=== PATIENT | male | born 1995 | race Caucasian/White ===

== ENCOUNTER 2018-03-24 03:03 | Emergency (ER) | payer BC ==
[2018-03-24] MEDS ORDERED: Sodium Chloride 0.9% 1000 ML 1,000 ML ONE ×2 (03:16→03:52)
[2018-03-24] MEDS ORDERED: Zofran 4 MG/2 ML VIAL ONE (03:16)
[2018-03-24] MEDS ORDERED: Zofran 4 MG/2 ML VIAL IV ONE (03:20)
--- NOTE | 2018-03-24 03:20 | ERPHSYRPT ---
- History of Present Illness Time Seen by Provider: 03/24/18 03:16 Source: family Exam Limitations: no limitations Physician History: The patient is a 22-year-old male brought in by family complaining that he drank somebody's homemade wine and is intoxicated. He's having a little bit of trouble breathing but not currently. Timing/Duration: today Severity: moderate Modifying Factors: Improves With: nothing Associated Symptoms: other (intoxication) Allergies/Adverse Reactions: No Known Drug Allergies Allergy (Verified 03/24/18 03:32) Home Medications: No Reportable Medications [No Reported Medications] 03/24/18 [History] Hx Tetanus, Diphtheria Vaccination/Date Given: Yes Hx Influenza Vaccination/Date Given: No Hx Pneumococcal Vaccination/Date Given: Yes - Review of Systems Constitutional: No Fever, No Chills Eyes: No Symptoms Ears, Nose, & Throat: No Symptoms Respiratory: No Cough, No Dyspnea Cardiac: No Chest Pain, No Edema, No Syncope Abdominal/Gastrointestinal: No Abdominal Pain, No Nausea, No Vomiting, No Diarrhea Genitourinary Symptoms: No Dysuria Musculoskeletal: No Back Pain, No Neck Pain Skin: No Rash Neurological: Other (intoxicated) Psychological: No Symptoms Endocrine: No Symptoms Hematologic/Lymphatic: No Symptoms Immunological/Allergic: No Symptoms All Other Systems: Reviewed and Negative - Past Medical History Pertinent Past Medical History: No - Past Surgical History Past Surgical History: Yes Other Surgical History: tubes in ears - Social History Smoking Status: Never smoker Exposure to second hand smoke: Yes Alcohol Use: None Drug Use: none Patient Lives Alone: No Significant Family History: no pertinent family hx - Nursing Vital Signs Nursing Vital Signs: Initial Vital Signs Temperature 98.1 F 03/24/18 03:20 Pulse Rate 93 H 03/24/18 03:20 Respiratory Rate 16 03/24/18 03:20 Blood Pressure 107/75 03/24/18 03:20 O2 Sat by Pulse Oximetry 97 03/24/18 03:20 Pain Scale Pain Intensity 0 - Physical Exam General Appearance: other (intoxicated) Eye Exam: PERRL/EOMI, eyes nml inspection Ears, Nose, Throat Exam: normal ENT inspection, TMs normal, pharynx normal, moist mucous membranes Neck Exam: normal inspection, non-tender, supple, full range of motion Respiratory Exam: normal breath sounds, lungs clear, No respiratory distress Cardiovascular Exam: regular rate/rhythm, normal heart sounds, normal peripheral pulses Gastrointestinal/Abdomen Exam: soft, normal bowel sounds, No tenderness, No mass Rectal Exam: not done Back Exam: normal inspection, normal range of motion, No CVA tenderness, No vertebral tenderness Extremity Exam: normal inspection, normal range of motion, pelvis stable Neurologic Exam: alert, oriented x 3, cooperative, sensation nml, intoxicated appearance, No motor deficits Skin Exam: normal color, warm, dry, No rash Lymphatic Exam: No adenopathy SpO2 Interpretation: normal Ordered Tests: Active Orders 24 hr Category Date Time Status Cath for Specimen-Straight STAT Care 03/24/18 03:21 Active BMP Stat Lab 03/24/18 03:13 Completed CBC W DIFF Stat Lab 03/24/18 03:13 Completed ETHYL ALCOHOL Stat Lab 03/24/18 03:13 Completed UA W/RFX UR CULTURE Stat Lab 03/24/18 04:14 Completed Urine Triage Profile Stat Lab 03/24/18 04:14 Received Medication Summary Generic Name Dose Route Start Last Admin Trade Name Freq PRN Reason Stop Dose Admin Sodium Chloride 2,000 mls @ 999 mls/hr 03/24/18 03:20 03/24/18 04:26 Sodium Chloride 0.9% 1000 Ml IV 03/24/18 05:20 999 mls/hr .Q2H1M STA Administration Discontinued Medications Generic Name Dose Route Start Last Admin Trade Name Freq PRN Reason Stop Dose Admin Sodium Chloride Confirm 03/24/18 03:16 Sodium Chloride 0.9% 1000 Ml Administered 03/24/18 03:17 Dose 1,000 mls @ ud .ROUTE .STK-MED ONE Sodium Chloride Confirm 03/24/18 03:52 Sodium Chloride 0.9% 1000 Ml Administered 03/24/18 03:53 Dose 1,000 mls @ ud .ROUTE .STK-MED ONE Ondansetron HCl Confirm 03/24/18 03:16 Zofran 4 Mg/2 Ml Vial Administered 03/24/18 03:17 Dose 4 mg .ROUTE .STK-MED ONE Ondansetron HCl 4 mg 03/24/18 03:20 03/24/18 03:40 Zofran 4 Mg/2 Ml Vial IV 03/24/18 03:21 4 mg STAT ONE Administration Lab/Rad Data: Laboratory Result Diagrams 03/24/18 03:13 03/24/18 03:13 Laboratory Results 03/24/18 03/24/18 03/24/18 Range/Units 04:14 03:13 03:13 WBC 9.1 (4.0-10.5) K/mm3 RBC 4.46 (4.1-5.6) M/mm3 Hgb 14.5 (12.5-18.0) gm/dl Hct 41.1 L (42-50) % MCV 92.2 (78-100) fl MCH 32.5 H (26-32) pg MCHC 35.3 (32-36) g/dl RDW 11.8 (11.5-14.0) % Plt Count 179 (150-450) K/mm3 MPV 11.3 H (6-9.5) fl Gran % 64.7 (36.0-66.0) % Eos # (Auto) 0.06 (0-0.5) Absolute Lymphs (auto) 2.38 (1.0-4.6) Absolute Monos (auto) 0.74 (0.0-1.3) Lymphocytes % 26.2 (24.0-44.0) % Monocytes % 8.1 (0.0-12.0) % Eosinophils % 0.7 (0.00-5.0) % Basophils % 0.3 (0.0-0.4) % Absolute Granulocytes 5.89 (1.4-6.9) Basophils # 0.03 (0-0.4) Sodium 144 (137-145) mmol/L Potassium 3.7 (3.5-5.1) mmol/L Chloride 106 (98-107) mmol/L Carbon Dioxide 21 L (22-30) mmol/L Anion Gap 20.4 H (5-15) MEQ/L BUN 10 (9-20) mg/dL Creatinine 0.86 (0.66-1.25) mg/dL Estimated GFR > 60.0 ML/MIN Glucose 156 H (74-106) mg/dL Calcium 9.0 (8.4-10.2) mg/dL Ur Collection Type CLEAN CATCH Urine Color YELLOW (YELLOW) Urine Appearance CLEAR (CLEAR) Urine pH 5.0 (5-6) Ur Specific [place] 1.020 (1.005-1.025) Urine Protein NEGATIVE (Negative) Urine Ketones NEGATIVE (NEGATIVE) Urine Blood NEGATIVE (0-5) Waqar/ul Urine Nitrite NEGATIVE (NEGATIVE) Urine Bilirubin NEGATIVE (NEGATIVE) Urine Urobilinogen NORMAL (0-1) mg/dL Ur Leukocyte Esterase NEGATIVE (NEGATIVE) Urine Culture Reflexed NO (NO) Urine Glucose NEGATIVE (NEGATIVE) mg/dL Ethyl Alcohol 207 H (0-10) mg/dL - Progress Progress: improved Counseled pt/family regarding: lab results, diagnosis - Departure Time of Disposition: 04:27 Departure Disposition: Home Clinical Impression: Alcohol intoxication Condition: Stable Critical Care Time: No Referrals: Provider,Unknown [NON-STAFF PHY W/O PRIVILEGES] - Additional Instructions: You had acute alcohol intoxication. You were given Zofran 4 mg and fluids by IV in the ER. Stay well hydrated. Follow-up as needed.
[2018-03-24 03:34] LABS: BASOPHIL % 0.3 % (0.0-0.4); Basophil (Absolute #) 0.03 (0-0.4); Eosinophil % 0.7 % (0.00-5.0); Eosinophil (Absolute #) 0.06 (0-0.5); Granulocyte Absolute (ANC) 5.89 (1.4-6.9); Granulocytes % 64.7 % (36.0-66.0); Hematocrit 41.1 % (42-50); Hemoglobin 14.5 gm/dl (12.5-18.0); Lymphocyte (Absolute #) 2.38 (1.0-4.6); Lymphocytes % 26.2 % (24.0-44.0); Mean Cell Volume 92.2 fl (78-100); Mean Corpuscular Hemoglobin 32.5 pg (26-32); Mean Corpuscular Hgb Concent. 35.3 g/dl (32-36); Mean Platelet Volume 11.3 fl (6-9.5); Monocyte (Absolute #) 0.74 (0.0-1.3); Monocytes % 8.1 % (0.0-12.0); Platelet Count 179 K/mm3 (150-450); Red Blood Count 4.46 M/mm3 (4.1-5.6); Red Cell Distribution Width 11.8 % (11.5-14.0); White Blood Count 9.1 K/mm3 (4.0-10.5)
[2018-03-24] MEDS: Sodium Chloride 0.9% 1000 ML 2,000 ML IV STA ×2 (03:40→04:26)
[2018-03-24 03:51] LABS: ANION GAP 20.4 MEQ/L (5-15); BLOOD UREA NITROGEN 10 mg/dL (9-20); CHLORIDE 106 mmol/L (98-107); Carbon Dioxide 21 mmol/L (22-30); Creatinine 1 0.86 mg/dL (0.66-1.25); ETHYL ALCOHOL 207 mg/dL (0-10); Glucose 156 mg/dL (74-106); Potassium 3.7 mmol/L (3.5-5.1); SODIUM 144 mmol/L (137-145)
[2018-03-24 04:24] LABS: Appearance CLEAR (CLEAR); Bilirubin NEGATIVE (NEGATIVE); Blood NEGATIVE Ery/ul (0-5); Glucose NEGATIVE (NEGATIVE); Ketones NEGATIVE (NEGATIVE); Leukocyte Esterase NEGATIVE (NEGATIVE); Nitrite NEGATIVE (NEGATIVE); Protein,Urine Dip NEGATIVE (Negative); Urobilinogen NORMAL mg/dL (0-1)
[2018-03-24 04:38] LABS: Amphetamine,Urine NEGATIVE (NEGATIVE); Barbiturate,Urine NEGATIVE (NEGATIVE); Benzodiazepine,Urine NEGATIVE (NEGATIVE); Cocaine,Urine NEGATIVE (NEGATIVE); Methadone,Urine NEGATIVE (NEGATIVE); Opiate,Urine NEGATIVE (NEGATIVE); PCP,Urine NEGATIVE (NEGATIVE); THC,Urine POSITIVE (NEGATIVE)
[2018-03-24 05:06] VITALS: BP 112/75; PULSE 89; O2SAT 99
== END 2018-03-24 05:06 | disposition home or self-care (01) ==
LOC: ED 03:03
DX: F10.129 Alcohol abuse with intoxication, unspecified (principal)
CPT/HCPCS: 36415; 80048; 80307; 81002; 85025; 96360; 96361; 96374; 99284; J2405; G0480

== ENCOUNTER 2018-12-05 17:35 | Emergency (ER) | payer BC ==
--- NOTE | 2018-12-05 17:51 | ERPHSYRPT ---
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 Occurred: just prior to arrival Method of Injury: other (back flip), fell Quality: aching, throbbing Severity of Pain-Max: moderate Severity of Pain-Current: moderate Extremities Pain Location: wrist: left Modifying Factors: Improves With: movement Associated Symptoms: none Allergies/Adverse Reactions: No Known Drug Allergies Allergy (Verified 12/05/18 18:06) Hx Tetanus, Diphtheria Vaccination/Date Given: Yes Hx Influenza Vaccination/Date Given: No Hx Pneumococcal Vaccination/Date Given: Yes - Review of Systems Constitutional: No Symptoms Eyes: No Symptoms Ears, Nose, & Throat: No Symptoms Respiratory: No Symptoms Cardiac: No Symptoms Abdominal/Gastrointestinal: No Symptoms Genitourinary Symptoms: No Symptoms Musculoskeletal: Fall, Injury, Joint Pain (left wrist), Joint Swelling Skin: No Symptoms Neurological: No Symptoms Psychological: No Symptoms Endocrine: No Symptoms Hematologic/Lymphatic: No Symptoms Immunological/Allergic: No Symptoms All Other Systems: Reviewed and Negative - Past Medical History Pertinent Past Medical History: No Neurological History: No Pertinent History ENT History: No Pertinent History Cardiac History: No Pertinent History Respiratory History: No Pertinent History Endocrine Medical History: No Pertinent History Musculoskeletal History: No Pertinent History GI Medical History: No Pertinent History History: No Pertinent History Psycho-Social History: No Pertinent History Male Reproductive Disorders: No Pertinent History - Past Surgical History Past Surgical History: Yes Other Surgical History: tubes in ears - Social History Smoking Status: Never smoker How long have you smoked: 3yrs Exposure to second hand smoke: Yes Alcohol Use: None Drug Use: none Patient Lives Alone: No Significant Family History: no pertinent family hx - Nursing Vital Signs Nursing Vital Signs: Initial Vital Signs Temperature 98.4 F 12/05/18 17:51 Pulse Rate 64 12/05/18 17:51 Respiratory Rate 20 12/05/18 17:51 Blood Pressure 111/62 12/05/18 17:51 O2 Sat by Pulse Oximetry 97 12/05/18 17:51 Pain Scale Pain Intensity 9 - Physical Exam General Appearance: no apparent distress, alert, anxiety Eyes, Ears, Nose, Throat Exam: normal ENT inspection, moist mucous membranes Neck Exam: normal inspection, non-tender, supple, full range of motion Cardiovascular/Respiratory Exam: chest non-tender Abdominal Exam: non-tender Back Exam: normal inspection, normal range of motion, No CVA tenderness, No vertebral tenderness Shoulder Exam: normal inspection, non-tender, no evidence of injury, normal ROM Elbow/Forearm Exam: normal inspection, non-tender, no evidence of injury, normal ROM Wrist Exam: normal ROM, bone tenderness, soft tissue tenderness, swelling Hand Exam: normal inspection, non-tender, no evidence of injury, normal ROM Neuro/Tendon Exam: normal sensation, normal motor functions, normal tendon functions, responds to pain, no evidence tendon injury Mental Status Exam: alert, oriented x 3, cooperative Skin Exam: normal color, warm, dry SpO2 Interpretation: normal O2 Delivery: Room Air - Course Nursing assessment & vital signs reviewed: Yes Ordered Tests: Active Orders 24 hr Category Date Time Status Splint STAT Care 12/05/18 19:22 Ordered FOREARM Stat Exams 12/05/18 18:32 Taken WRIST (MIN 3 VIEWS) Stat Exams 12/05/18 18:32 Taken Medication Summary Discontinued Medications Generic Name Dose Route Start Last Admin Trade Name Freq PRN Reason Stop Dose Admin Oxycodone/Acetaminophen 1 tab 12/05/18 18:33 12/05/18 19:01 Percocet Tablet 5/325mg PO 12/05/18 18:34 1 tab STAT STA Administration Oxycodone/Acetaminophen Confirm 12/05/18 18:55 Percocet Tablet 5/325mg Administered 12/05/18 18:56 Dose 1 tab .ROUTE .STK-MED ONE - Progress Progress: improved, pain not gone completely, re-examined Progress Note: 12/05/18 19:28 post slint nv check-intact xray left wrist and forearm-nondisplaced distal radius Counseled pt/family regarding: diagnosis, need for follow-up - Departure Departure Disposition: Home Clinical Impression: Distal radius fracture Condition: Stable Critical Care Time: No Referrals: MARIELLA ELIZONDO NP [Primary Care Provider] - Additional Instructions: ice pack to area 3 times daily for 2 days. add ibuprofen for pain. follow up tomorrow with orthopedic of choice for further management Prescriptions: Oxycodone HCl/Acetaminophen [Percocet 5-325 mg Tablet] 1 each PO Q6H PRN PRN # 12 tablet MDD 4 PRN Reason: Pain
[2018-12-05] MEDS ORDERED: PERCOCET TABLET 5/325MG PO STA ×2 (18:33→20:13)
[2018-12-05] MEDS ORDERED: PERCOCET TABLET 5/325MG ONE ×2 (18:55→20:16)
[2018-12-05 20:03] VITALS: BP 152/65; PULSE 72; O2SAT 96
--- NOTE | 2018-12-06 08:41 | XRAY ---
Indication: Pain following fall. Comparison: None 3 views of the left wrist limited due to overlying external bracelet. Query nondisplaced distal radial fracture, ulnar aspect with intra-articular extension. Follow-up exam or thin section CT imaging may yield further information. Remaining wrist unremarkable.
--- NOTE | 2018-12-06 08:43 | XRAY ---
Indication: Pain following fall. Comparison: None 2 views of the left forearm obtained. Wrist reported separately. No bony, articular, or soft tissue abnormalities.
== END 2018-12-05 18:21 | disposition home or self-care (01) ==
LOC: ED 17:35
DX: S52.502A Unspecified fracture of the lower end of left radius, initial encounter for closed fracture (principal); M25.532 Pain in left wrist; W01.198A Fall on same level from slipping, tripping and stumbling with subsequent striking against other object, initial encounter; Y93.79 Activity, other specified sports and athletics
CPT/HCPCS: 29126; 73090; 73110; 99284; A9270-GY

== ENCOUNTER 2019-05-30 17:42 | Emergency (ER) | payer BC ==
--- NOTE | 2019-05-30 17:50 | ERPHSYRPT ---
- History of Present Illness Source: patient, family Exam Limitations: no limitations Timing/Duration: today Activities at Onset: none Severity of Dyspnea-Max: mild Severity of Dyspnea-Current: mild Possible Cause: no prior episodes Associated Symptoms: intermittent, anxiety, chest pain/discomfort, painful breathing Hx Tetanus, Diphtheria Vaccination/Date Given: Yes Hx Influenza Vaccination/Date Given: No Hx Pneumococcal Vaccination/Date Given: Yes <JOE ABAD - Last Filed: 05/30/19 19:08> <PALLAVI HUBER - Last Filed: 05/30/19 19:41> - History of Present Illness Time Seen by Provider: 05/30/19 17:50 Physician History: 23 y/o white male presents with sudden onset cp and soa. pt quit smoking cigarettes a year ago. he replaced this with vaping of thc bases jewel product. pt denies fever. he denies cough. he has left side localized to costal margin. it is sharp and worse with deep inspiration. pt is not on any medications and denies illicit drug use (JOE ABAD) Allergies/Adverse Reactions: No Known Drug Allergies Allergy (Verified 05/30/19 18:01) Home Medications: No Reportable Medications [No Reported Medications] 05/30/19 [History] - Review of Systems Constitutional: No Symptoms Eyes: No Symptoms Ears, Nose, & Throat: No Symptoms Respiratory: Dyspnea, No Stridor, No Wheezing Cardiac: Chest Pain, No Palpitations, No Syncope Abdominal/Gastrointestinal: No Symptoms, No Abdominal Pain, No Nausea, No Vomiting, No Diarrhea Genitourinary Symptoms: No Symptoms Musculoskeletal: No Symptoms Skin: No Symptoms Neurological: No Symptoms Psychological: No Symptoms Endocrine: No Symptoms Hematologic/Lymphatic: No Symptoms Immunological/Allergic: No Symptoms All Other Systems: Reviewed and Negative <JOE ABAD - Last Filed: 05/30/19 19:08> - Past Medical History Pertinent Past Medical History: No Neurological History: No Pertinent History ENT History: No Pertinent History Cardiac History: No Pertinent History Respiratory History: No Pertinent History Endocrine Medical History: No Pertinent History Musculoskeletal History: No Pertinent History GI Medical History: No Pertinent History History: No Pertinent History Psycho-Social History: No Pertinent History Male Reproductive Disorders: No Pertinent History - Past Surgical History Past Surgical History: Yes Neuro Surgical History: No Pertinent History Cardiac: No Pertinent History Respiratory: No Pertinent History Gastrointestinal: No Pertinent History Genitourinary: No Pertinent History Musculoskeletal: No Pertinent History Male Surgical History: No Pertinent History Other Surgical History: tubes in ears - Social History Smoking Status: Never smoker How long have you smoked: 3yrs Exposure to second hand smoke: Yes Alcohol Use: None Drug Use: none Patient Lives Alone: No Significant Family History: no pertinent family hx <JOE ABAD - Last Filed: 05/30/19 19:08> - Physical Exam General Appearance: mild distress, alert, anxiety Eye Exam: PERRL/EOMI, eyes nml inspection Ears, Nose, Throat Exam: hearing grossly normal, normal ENT inspection, normal pharynx Neck Exam: normal inspection, non-tender, supple, full range of motion Respiratory Exam: normal breath sounds, lungs clear, airway intact, No chest tenderness, No respiratory distress Cardiovascular/Chest Exam: normal heart sounds, regular rate/rhythm, murmur Abdominal/Gastrointestinal Exam: soft, normal bowel sounds, No tenderness Rectal Exam: not done Extremity Exam: non-tender, normal range of motion, normal inspection Neurologic Exam: alert, oriented x 3, cooperative, cafe helper II-XII nml as tested Skin Exam: normal color, warm, dry Lymphatic Exam: No adenopathy SpO2 Interpretation: normal O2 Delivery: Room Air <JOE ABAD - Last Filed: 05/30/19 19:08> - Nursing Vital Signs Nursing Vital Signs: Initial Vital Signs Temperature 96.9 F 05/30/19 17:43 Pulse Rate 63 05/30/19 17:43 Respiratory Rate 26 H 05/30/19 17:43 Blood Pressure 114/69 05/30/19 17:43 O2 Sat by Pulse Oximetry 99 05/30/19 17:43 Pain Scale Pain Intensity 5 - Course Nursing assessment & vital signs reviewed: Yes EKG Interpreted by Me: RATE (53), Sinus Rhythm, NORMAL AXIS, NORMAL INTERVALS, NORMAL QRS, Other (no comparison ekg.) <JOE ABAD - Last Filed: 05/30/19 19:08> Ordered Tests: Active Orders 24 hr Category Date Time Status Merchandise Executive STAT Care 05/30/19 18:24 Active Clean Catch Urine Specimen STAT Care 05/30/19 18:28 Active EKG-ER Only STAT Care 05/30/19 18:23 Active IV Insertion STAT Care 05/30/19 18:23 Active Pulse Oximetry (ED) STAT Care 05/30/19 18:23 Active CHEST 1 VIEW (PORTABLE) Stat Exams 05/30/19 18:23 Taken CBC W DIFF Stat Lab 05/30/19 18:30 Completed CMP Stat Lab 05/30/19 18:30 Completed D-DIMER QUANTITATION Stat Lab 05/30/19 18:30 Completed Lactic Acid Stat Lab 05/30/19 18:40 Completed NT PRO BNP Stat Lab 05/30/19 18:30 Completed TROPONIN Q3H Lab 05/30/19 18:30 Completed TROPONIN Q3H Lab 05/30/19 21:30 Ordered TROPONIN Q3H Lab 05/31/19 00:30 Ordered TROPONIN Q3H Lab 05/31/19 03:30 Ordered TROPONIN Q3H Lab 05/31/19 06:30 Ordered Urine Triage Profile Stat Lab 05/30/19 19:23 Ordered Lab/Rad Data: Laboratory Result Diagrams 05/30/19 18:30 05/30/19 18:30 Laboratory Results 05/30/19 05/30/19 05/30/19 Range/Units 18:40 18:30 18:30 WBC (4.0-10.5) K/mm3 RBC (4.1-5.6) M/mm3 Hgb (12.5-18.0) gm/dl Hct (42-50) % MCV (78-100) fl MCH (26-32) pg MCHC (32-36) g/dl RDW (11.5-14.0) % Plt Count (150-450) K/mm3 MPV (6-9.5) fl Gran % (36.0-66.0) % Eos # (Auto) (0-0.5) Absolute Lymphs (auto) (1.0-4.6) Absolute Monos (auto) (0.0-1.3) Lymphocytes % (24.0-44.0) % Monocytes % (0.0-12.0) % Eosinophils % (0.00-5.0) % Basophils % (0.0-0.4) % Absolute Granulocytes (1.4-6.9) Basophils # (0-0.4) D-Dimer < 170 L (215-500) ng/mL Sodium (137-145) mmol/L Potassium (3.5-5.1) mmol/L Chloride (98-107) mmol/L Carbon Dioxide (22-30) mmol/L Anion Gap (5-15) MEQ/L BUN (9-20) mg/dL Creatinine (0.66-1.25) mg/dL Estimated GFR ML/MIN Glucose (74-106) mg/dL Lactic Acid 1.0 (0.4-2.0) Calcium (8.4-10.2) mg/dL Total Bilirubin (0.2-1.3) mg/dL AST (17-59) U/L ALT (0-50) U/L Alkaline Phosphatase (38-126) U/L Troponin I < 0.012 (0.000-0.034) ng/mL NT-Pro-B Natriuret Pep (0-450) pg/mL Serum Total Protein (6.3-8.2) g/dL Albumin (3.5-5.0) g/dL 05/30/19 05/30/19 Range/Units 18:30 18:30 WBC 6.2 (4.0-10.5) K/mm3 RBC 4.42 (4.1-5.6) M/mm3 Hgb 13.9 (12.5-18.0) gm/dl Hct 40.4 L (42-50) % MCV 91.4 (78-100) fl MCH 31.4 (26-32) pg MCHC 34.4 (32-36) g/dl RDW 12.2 (11.5-14.0) % Plt Count 194 (150-450) K/mm3 MPV 11.2 H (6-9.5) fl Gran % 64.1 (36.0-66.0) % Eos # (Auto) 0.12 (0-0.5) Absolute Lymphs (auto) 1.54 (1.0-4.6) Absolute Monos (auto) 0.57 (0.0-1.3) Lymphocytes % 24.7 (24.0-44.0) % Monocytes % 9.1 (0.0-12.0) % Eosinophils % 1.9 (0.00-5.0) % Basophils % 0.2 (0.0-0.4) % Absolute Granulocytes 4.00 (1.4-6.9) Basophils # 0.01 (0-0.4) D-Dimer (215-500) ng/mL Sodium 144 (137-145) mmol/L Potassium 3.7 (3.5-5.1) mmol/L Chloride 104 (98-107) mmol/L Carbon Dioxide 29 (22-30) mmol/L Anion Gap 15.1 H (5-15) MEQ/L BUN 14 (9-20) mg/dL Creatinine 0.83 (0.66-1.25) mg/dL Estimated GFR > 60.0 ML/MIN Glucose 81 (74-106) mg/dL Lactic Acid (0.4-2.0) Calcium 9.6 (8.4-10.2) mg/dL Total Bilirubin 0.60 (0.2-1.3) mg/dL AST 29 (17-59) U/L ALT 17 (0-50) U/L Alkaline Phosphatase 62 (38-126) U/L Troponin I (0.000-0.034) ng/mL NT-Pro-B Natriuret Pep 97.7 (0-450) pg/mL Serum Total Protein 8.4 H (6.3-8.2) g/dL Albumin 4.9 (3.5-5.0) g/dL - Progress Air Movement: good <JOE ABAD - Last Filed: 05/30/19 19:08> <PALLAVI HUBER - Last Filed: 05/30/19 19:41> - Progress Progress Note: 05/30/19 18:47 cxr-no acute process 05/30/19 19:08 transfer of care to dr. huber. i reviewed pt hx and pending tests. he accepts pt. (JOE ABAD) 05/30/19 19:30 the patient is nontoxic with normal vital signs and isolated left-sided chest pain and is a healthy 23-year-old male. Likely this is costochondritis. No evidence of pneumothorax or focal infiltrate on imaging. Labs normal. Low suspicion for pulmonary embolism or infectious etiology. Scheduled instead therapy and follow up with primary care recommended at time of discharge. 05/30/19 19:32 in the (PALLAVI HUBER) <JOE ABAD - Last Filed: 05/30/19 19:08> - Departure Departure Disposition: Home Critical Care Time: No <PALLAVI HUBER - Last Filed: 05/30/19 19:41> - Departure Clinical Impression: Chest pain Qualifiers: Chest pain type: unspecified Qualified Code(s): R07.9 - Chest pain, unspecified Condition: Fair Referrals: MARIELLA ELIZONDO NP [Primary Care Provider] - Instructions: Costochondritis (DC) Plan of Treatment: Take Ibuprofen as needed for discomfort. Follow primary care provider. Return here for new or concerning symptoms.
[2019-05-30 18:49] LABS: BASOPHIL % 0.2 % (0.0-0.4); Basophil (Absolute #) 0.01 (0-0.4); Eosinophil % 1.9 % (0.00-5.0); Eosinophil (Absolute #) 0.12 (0-0.5); Hematocrit 40.4 % (42-50); Hemoglobin 13.9 gm/dl (12.5-18.0); Lymphocyte (Absolute #) 1.54 (1.0-4.6); Lymphocytes % 24.7 % (24.0-44.0); Mean Cell Volume 91.4 fl (78-100); Mean Corpuscular Hemoglobin 31.4 pg (26-32); Mean Corpuscular Hgb Concent. 34.4 g/dl (32-36); Mean Platelet Volume 11.2 fl (6-9.5); Monocyte (Absolute #) 0.57 (0.0-1.3); Monocytes % 9.1 % (0.0-12.0); Neutrophil % 64.1 % (36.0-66.0); Platelet Count 194 K/mm3 (150-450); Red Blood Count 4.42 M/mm3 (4.1-5.6); Red Cell Distribution Width 12.2 % (11.5-14.0); White Blood Count 6.2 K/mm3 (4.0-10.5)
[2019-05-30 19:09] LABS: ALBUMIN 4.9 g/dL (3.5-5.0); ALKALINE PHOSPHATASE 62 U/L (38-126); ANION GAP 15.1 MEQ/L (5-15); BLOOD UREA NITROGEN 14 mg/dL (9-20); CHLORIDE 104 mmol/L (98-107); Calcium 9.6 mg/dL (8.4-10.2); Carbon Dioxide 29 mmol/L (22-30); Creatinine 1 0.83 mg/dL (0.66-1.25); Glucose 81 mg/dL (74-106); NT PRO BNP 97.7 pg/mL (0-450); Potassium 3.7 mmol/L (3.5-5.1); SGOT/AST 29 U/L (17-59); SGPT/ALT 17 U/L (0-50); SODIUM 144 mmol/L (137-145); Total Protein 8.4 g/dL (6.3-8.2)
[2019-05-30 19:18] VITALS: BP 92/47; PULSE 56; O2SAT 97
[2019-05-30 19:50] LABS: INFLUENZA A NEGATIVE (NEGATIVE); INFLUENZA B NEGATIVE (NEGATIVE); RESPIRATORY SYNCTIAL VIRUS NEGATIVE (Negative)
[2019-05-30 20:13] LABS: Amphetamine,Urine NEGATIVE (NEGATIVE); Barbiturate,Urine NEGATIVE (NEGATIVE); Benzodiazepine,Urine NEGATIVE (NEGATIVE); Cocaine,Urine NEGATIVE (NEGATIVE); Methadone,Urine NEGATIVE (NEGATIVE); Opiate,Urine NEGATIVE (NEGATIVE); PCP,Urine NEGATIVE (NEGATIVE); THC,Urine POSITIVE (NEGATIVE)
--- NOTE | 2019-05-31 08:49 | XRAY ---
Indication: Chest pain and short of breath. Comparison: None Portable chest demonstrates normal heart, lungs, and bony thorax.
== END 2019-05-30 19:53 | disposition home or self-care (01) ==
LOC: ED 17:42
DX: R07.9 Chest pain, unspecified (principal)
CPT/HCPCS: 36000; 36415; 71045; 80053; 80307; 83605; 83880; 84484; 85025; 85379; 87631; 93005; 93041; 94760; 99284